=== PATIENT | male | born 2000 | race Two or more races ===

== ENCOUNTER 2023-11-12 14:58 | Emergency (ER) | payer MEDICAID, SELFPAY ==
--- NOTE | 2023-11-12 | ECG_ITS ---
Test Reason : cp Blood Pressure : / mmHG Vent. Rate : 100 BPM Atrial Rate : 100 BPM P-R Int : 134 ms QRS Dur : 088 ms QT Int : 336 ms P-R-T Axes : 063 044 035 degrees QTc Int : 433 ms Artifact in tracing Normal sinus rhythm Normal ECG No previous ECGs available Referred By: Generic ED Physician Electronically Signed By:BETTIE CHACON
--- NOTE | ~2023-11-12 | XR_ITS ---
EXAMINATION: XR CHEST CLINICAL INFORMATION: Chest pain COMPARISON: None available. TECHNIQUE: 2 views of the chest were obtained. FINDINGS: No evidence for airspace consolidation or pneumothorax. The hilar regions and pulmonary vascularity appear to be unremarkable. Pleural surfaces appear to be clear. No evidence for pneumomediastinum. XR/XR chest 2V IMPRESSION: No evidence for acute process.
[2023-11-12 15:35] VITALS: BP 154/86; PULSE 87; RESP 18; TEMP 36.3; O2SAT 99; BMI 29.8
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
[2023-11-12 16:04] LABS: Mean Corpuscular HGB Conc 35.9 g/dl (31.0-36.0); Mean Corpuscular Hemoglobin 32.5 pg (27.0-33.0); Mean Corpuscular Volume 90.5 fL (80.0-98.0); Mean Platelet Volume 10.1 fL (9.4-12.4); Platelet Count 193 X10*3/uL (160-400); Red Blood Count 4.31 X10*6/uL (4.60-5.80); White Blood Count 5.6 X10*3/uL (4.8-10.8)
[2023-11-12 16:26] LABS: SLIDE REVIEW MANUAL DIFF
[2023-11-12 16:28] LABS: Atypical Lymph Absolute Manual 0.1 x10*3/uL; Atypical Lymphs Percent Manual 2 % (0-6); Band Neutrophils Percent 1 % (3-5); Lymphocytes Absolute Manual 2.7 X10*3/uL (1.2-4.9); Lymphocytes Percent Manual 49 % (20-40); Monocytes Absolute Manual 0.5 X10*3/uL (0.1-1.2); Monocytes Percent Manual 9 % (2-11); Neutrophils Absolute Manual 2.2 X10*3/uL (2.0-8.3); Neutrophils Percent Manual 39 % (45-73); Platelet Estimate NORMAL (NORMAL); Platelet Morphology Comment NORMAL; RBC Morphology NORMAL
[2023-11-12 16:34] LABS: Alanine Aminotransferase 16 U/L (0-40); Albumin Level 4.9 g/dL (3.5-5.0); Alkaline Phosphatase 60 U/L (39-117); Anion Gap 14 (12-20); Aspartate Amino Transferase 20 U/L (5-37); Bilirubin Total 0.7 mg/dL (0.0-1.0); Blood Urea Nitrogen 20 mg/dL (9-16); Calcium 9.9 mg/dL (8.4-10.2); Carbon Dioxide 24 mmol/L (22-29); Chloride 107 mmol/L (96-108); Creatinine Clr Calc Pharmacy 119.4; Estimated Glomerular Filt Rate > 60; Glucose Random 101 mg/dL (60-115); Magnesium 2.2 mg/dL (1.6-2.6); Potassium 3.6 mmol/L (3.3-5.1); Sodium 141 mmol/L (135-145); Total Protein 8.1 g/dL (6.5-8.0)
[2023-11-12 16:44] LABS: Troponin-I High Sensitivity < 2.7 ng/L (<3.5-35.0)
[2023-11-12 16:58] LABS: Influenza A PCR NEGATIVE (Negative); Influenza B PCR NEGATIVE (Negative); Resp Syncy Virus RNA Qual PCR NEGATIVE (Negative); SARS COV2 PCR INHOUSE POSITIVE (Negative)
[2023-11-12 17:44] VITALS: BP 135/81; PULSE 60; RESP 17; O2SAT 96
[2023-11-12 19:59] LABS: Appearance Urine Clear; Color Urine Yellow; Glucose Urine UA Negative (Negative); Leukocyte Esterase Urine Negative (Negative); Nitrite Urine Negative (Negative); Specific Gravity - Urine >= 1.030 (1.005-1.025); Urine Blood Negative (Negative); Urine Ketones Trace mg/dL (Negative); Urine Protein Negative (Neg-Trace)
[2023-11-12 22:27] VITALS: BP 119/95; PULSE 64; RESP 18; TEMP 36.6; O2SAT 97
[2023-11-13 00:58] LABS: C Reactive Protein 0.25 mg/dL (< or = 0.50)
[2023-11-13 01:04] VITALS: BP 122/78; PULSE 59; RESP 16; TEMP 36.7; O2SAT 98
[2023-11-13] MEDS: LORazepam 1 MG TABLET 2 MG PO (01:27)
[2023-11-13 08:35] LABS: Syphilis Screen Nonreactive (Nonreactive)
[2023-11-13 13:39] LABS: CT PCR NOT DETECTED (Not Detect.); NG PCR NOT DETECTED (Not Detect.)
== END 2023-11-13 01:47 | disposition home or self-care (01) ==
PROVIDERS: Physician Assistant Medical; Emergency Provider Emergency Medicine
DX: U07.1 COVID-19 (principal); R07.89 Other chest pain; Z79.899 Other long term (current) drug therapy
CPT/HCPCS: 0241U; 36415; 71046; 80053; 81003; 83735; 84484; 85007; 85025; 85027; 86140; 86780; 87491; 87591; 93005; 99283; 99284

== ENCOUNTER → 2023-11-12 14:59 | Outpatient (BNV) | payer MEDICAID, SELFPAY | PROVIDERS: Emergency Provider Emergency Medicine; Visit Provider Internal Medicine | DX: R07.9 Chest pain, unspecified (principal) | CPT/HCPCS: 93010 ==

== ENCOUNTER 2024-03-14 10:03 | Outpatient (REF) | payer MEDICAID, SELFPAY ==
[2024-03-14 14:18] LABS: MANUAL DIFF FLAG NO
[2024-03-14 14:21] LABS: Basophils Percent Auto 0.5 % (0-2); Eosinophils Absolute Auto 0.2 X10*3/uL (0.0-0.4); Eosinophils Percent Auto 3.4 % (0-4); Hemoglobin 15.4 g/dl (14.0-18.0); Imm Gran Abs Auto 0.03 X10*3/uL (0.00-0.03); Imm Gran Pct Auto 0.5 % (0.0-0.4); Lymphocytes Absolute Auto 2.3 X10*3/uL (1.2-4.9); Mean Corpuscular Hemoglobin 31.4 pg (27.0-33.0); Mean Corpuscular Volume 89.6 fL (80.0-98.0); Mean Platelet Volume 10.6 fL (9.4-12.4); Monocytes Absolute Auto 0.5 X10*3/uL (0.1-1.2); Monocytes Percent Auto 7.4 % (2-11); Neutrophils Absolute Auto 3.4 x10*3/uL (2.0-8.3); Neutrophils Percent Auto 52.2 % (45-73); Platelet Count 188 X10*3/uL (160-400); Red Blood Count 4.91 X10*6/uL (4.60-5.80); Red Cell Distribution Width 11.9 % (11.0-16.0); White Blood Count 6.5 X10*3/uL (4.8-10.8)
[2024-03-14 14:33] LABS: Estimated Average Glucose 108 mg/dL; Hemoglobin A1C 139.7732 umol/L; Hemoglobin A1c % 5.4 % (<6.0)
[2024-03-14 14:44] LABS: Albumin Level 4.6 g/dL (3.5-5.0); Anion Gap 13 (12-20); Aspartate Amino Transferase 29 U/L (5-37); Bilirubin Total 0.4 mg/dL (0.0-1.0); Blood Urea Nitrogen 16 mg/dL (9-16); Calcium 9.9 mg/dL (8.4-10.2); Carbon Dioxide 24 mmol/L (22-29); Chloride 107 mmol/L (96-108); Cholesterol 217 mg/dL (<200); Estimated Glomerular Filt Rate > 60; Glucose Random 108 mg/dL (60-115); HDL Cholesterol 54 mg/dL (>40); LDL Cholesterol Calculated 137 mg/dL (<100); Sodium 140 mmol/L (135-145); Total Protein 7.6 g/dL (6.5-8.0); Triglycerides 131 mg/dL (<150)
[2024-03-14 15:01] LABS: Alanine Aminotransferase 33 U/L (0-40); Alkaline Phosphatase 52 U/L (39-117)
[2024-03-14 15:09] LABS: TSH reflex Free T4 1.41 uIU/mL (0.32-4.0)
[2024-03-15 08:38] LABS: HIV AB/AG Nonreactive (Nonreactive); HIV Num 1 0.06 S/CO (0.00-0.99); ~HepC Num1 0.16 S/CO (0.00-0.79); ~Hepatitis C Antibody Nonreactive (Nonreactive)
== END 2024-03-14 10:04 | disposition home or self-care (01) ==
LOC: HO.CHCLDS 10:03
PROVIDERS: Visit Provider Internal Medicine
DX: E66.811 Obesity, class 1 (principal)
CPT/HCPCS: 36415; 80053; 80061; 83036; 84443; 85025; 86803; 87389

== ENCOUNTER 2024-06-03 16:20 | Outpatient (REF) | payer MEDICAID, SELFPAY ==
[2024-06-03 18:47] LABS: Anion Gap 11 (12-20); Blood Urea Nitrogen 12 mg/dL (9-16); Calcium 9.4 mg/dL (8.4-10.2); Carbon Dioxide 28 mmol/L (22-29); Chloride 103 mmol/L (96-108); Estimated Glomerular Filt Rate > 60; Glucose Random 120 mg/dL (60-115); Potassium 3.9 mmol/L (3.3-5.1); Sodium 138 mmol/L (135-145)
--- OUTSIDE RECORDS SUMMARY | 2024-06-03 20:06 | XMS_ITS | Encounter Summary ---
Author Organization [employer] Address [address] [place] [address] Care Team Providers Care Round Corner Cutter Operator Name Role Phone Anirudh Nguyen MD Primary Care Prov ider Reason for Visit * Reason Onset Date Comments Nurse Triage 06/03/2024 Encounter Details Date Type Department Care Team (Late st Contact Info) Description 06/03/2024 Telephone [facility] [address] [place] [address] Anirudh Nguyen MD [address] [place] [address] Nurse Triage Social History Tobacco Use Types Packs/Day Years Used Date Smoking Tobacco: Never Smokeless Tobacco: Former Alcohol Use Standard Drinks/Week Comments Yes 0 (1 standard drink = 0.6 oz pur e alcohol) socially Depression Answer Date Recorded Patient Health Questionnaire-9 Score 0 01/30/2024 Patient Health Questionnaire-9 Score 0 01/30/2024 Last PHQ-9: Questionnaire Data Not on file 1 Housing Stability Answer Date Recorded What is your housing situation today? I have makenzie abbtot 01/30/[address] you li ve. Do you have problems with any of the following? None of the above 01/30/2024 Food Insecurity Answer Date Recorded Within the past 12 months, y ou worried that your food would run out before you got money to buy more: Never True 01/30/2024 Within the past 12 months,th e food you bought just didn't last and you didn't have enough money to get more: Never True Transportation Answer Date Recorded In the past 12 months, has l ack of transportation kept you from medical appts, meetings, work or from getting things needed for daily living? No 01/30/2024 Utilities Answer Date Recorded In the past 12 months, has t he electric, gas, oil or water [employer] threatened to shut off services in your home? No 01/30/2024 Depression Answer Date Recorded Patient Health Questionnaire-2 Score 0 01/30/2024 Internet Access Answer Date Recorded Internet Access Q1 Yes 01/30/2024 Internet Access Q2 Not on file 01/30/2024 Sex and Gender Information Value Date Recorded Sex Assigned at Male 11/13/2023 4:36 PM EDT Legal Sex Male 4:19 PM EDT Gender Identity Male 11/13/2023 4:36 PM EDT Sexual Orientation Straight 11/13/2023 4: 36 PM EDT documented as of this encounter Miscellaneous Notes * Telephone Encounter - Lisa Dumont RN - 06/03/2024 3:27 PM EST Pt. States that he has had a fever and sore throat x 2 days. Throat inflamed and white spots on throat. Pain with swallowing and body aches. Pt. Has taken Ibuprofen with no relief. Pt. Is on his way at present to [facility] walk in. Advised that they do take dinner break between 4-5pm. Pt. Is aware and states he is 10 minutes away. I advised that I cannot see who is there at present so hopefully he can get in prior to providers break. Protocol Used: Sore Throat (Adult) Protocol-Based Disposition: See in Office or Video Visit Today- Pt is currently on his way to [facility] walk in. Video visit offer not recorded Positive Triage Questions: * Severe sore throat pain * Pus on tonsils (back of throat) and swollen neck lymph nodes ( glands ) * Patient wants to be seen * Fever present > 3 days (72 hours) * All higher-acuity triage questions were negative Care Advice Discussed: * Sore Throat * Soft Diet * Drink Plenty of Liquids * Pain and Fever Medicines * Contagiousness * Expected Course * Telephone Encounter - Lopez Goran - 06/03/2024 3:14 PM EST Symptom: Sore Throat Outcome: Talk to a nurse or provider within 15 minutes Reason: Can't swallow saliva (drooling) The caller accepted this outcome. Advised of WIC hours documented in this encounter Plan of Treatment Not on file documented as of this encounter Visit Diagnoses Not on filedocumented in this encounter Additional Health Concerns Assessment Noted Time PHQ-9 Depression Total Score: 0 01/30/20 10:33 AM EDT documented as of this encounter Care Teams Round Corner Cutter Operator Relationship Specialty Start Date End Date Anirudh Nguyen MD [address] [place] [id number] PCP - General Internal Medicine 01/31/24 documented as of this encounter
--- OUTSIDE RECORDS SUMMARY | 2024-06-03 20:07 | XMS_ITS | Encounter Summary ---
Author Organization [employer] Address [address] [facility] [address] [place] [address] Care Team Providers Care Public Relations Associate Name Role Phone Anirudh Nguyen MD Primary Care Prov ider Reason for Visit * Reason Comments Sore Throat Encounter Details Date Type Department Care Team (Late st Contact Info) Description 06/03/2024 3:40 PM EST Office Visit [facility] [address] [place] [address] [phone] Sherley Reid MD [address] [place], [place] [phone] Strep pharyngitis (Primary Dx); COVID; Myalgia Social History Tobacco Use Types Packs/Day Years [...] your housing situation today? I have makenzie abbott 01/30/[address] you li [...] t he electric, gas, oil or water company threatened to shut off services in your [...] PM EDT documented as of this encounter Last Filed Vital Signs Vital Sign Reading Time Taken Comments Blood Pressure 142/91 06/03/2024 3:50 PM EST Pulse 132 06/03/2024 3:50 PM EST Temperature 38.8 ??C (101.9 ??F) 06/03/2024 3:[address] Respiratory Rate 20 06/03/2024 3:50 PM EST Oxygen Saturation 91% 06/03/2024 3:50 PM EST Inhaled Oxygen Concentration - - Weight 100 kg (220 lb 12.8 oz) 06/03/2024 3:50 P M EST Height - - Body Mass Index 33.82 03/14/2024 9:38 AM EST documented in this encounter Progress Notes * Sherley Reid MD - 06/03/2024 3:40 PM EST Subjective History was provided by the patient. Robby Devi is a 23 y.o. male with past medical history of obesity, anxiety and chronic back pain who presents for evaluation of symptoms of a URI. Symptoms include fever, myalgia, sore throat, and malaise . Reports worsening back and leg pain. Onset of symptoms was 2 days ago, unchanged since that time. Associated negative symptoms include cough, shortness of breath, nausea, and vomiting. Evaluation to date: none. Treatment to date: none. Objective Vitals: 06/03/24 1550 BP: (!) 142/91 BP Location: Left arm Patient Position: Sitting BP Cuff Size: Adult Pulse: (!) 132 Resp: 20 Temp: (!) 101.9 ??F (38.8 ??C) TempSrc: Oral SpO2: 91% Weight: 220 lb 12.8 oz (100 kg) Physical Exam Constitutional: Appearance: Normal appearance. Comments: febrile HENT: Right Ear: Tympanic membrane normal. Left Ear: Tympanic membrane normal. Nose: Nose normal. Mouth/Throat: Pharynx: Uvula midline. Pharyngeal swelling and posterior oropharyngeal erythema present. No oropharyngeal exudate. Eyes: Conjunctiva/sclera: Conjunctivae normal. Cardiovascular: Rate and Rhythm: Regular rhythm. Tachycardia present. Heart sounds: Normal heart sounds. Pulmonary: Effort: Pulmonary effort is normal. Breath sounds: Normal breath sounds. Musculoskeletal: Cervical back: Normal range of motion. No rigidity or tenderness. Lymphadenopathy: Cervical: Cervical adenopathy present. Neurological: Mental Status: He is alert. Psychiatric: Behavior: Behavior normal. Office Visit on 06/03/2024 Component Date Value Ref Range Status Rapid Influenza A Ag 06/03/2024 Negative Negative, Indeterminate Final QC Media Lot # 06/03/2024 [id number] Final Lot# Expiration Date 06/03/2024 100,826 Final Rapid Influenza B Ag 06/03/2024 Negative Negative, Indeterminate Final QC Media Lot # 06/03/2024 [id number] Final Lot# Expiration Date 06/03/2024 10,826 Final Rapid Strep A Screen 06/03/2024 Positive (A) Negative, None Detected Final QC Media Lot # 06/03/2024 [id number] Final Lot# Expiration Date 06/03/2024 10,826 Final Rapid COVID Ag 06/03/2024 Positive Final QC Media Lot # 06/03/2024 [id number] Final Lot# Expiration Date 06/03/2024 9,426 Final Problem List Items Addressed This Visit Strep pharyngitis - Primary -rapid strep positive -amoxicillin 500mg bid for 10 days -droplet precautions discussed -supportive care discussed Relevant Medications amoxicillin (Amoxil) 500 MG capsule acetaminophen (Tylenol 8 Hour) 650 MG ER tablet Other Relevant Orders Creatine Kinase, Total POCT Influenza A manually resulted (Completed) POCT Influenza B manually resulted (Completed) POCT rapid strep A manually resulted (Completed) COVID -COVID-19 positive, symptoms mild to moderate. No evidence of respiratory distress -supportive care with fluids, rest and OTC analgesics -isolation discussed -work/school note given Relevant Orders Creatine Kinase, Total POCT Rapid COVID Ag (Completed) Myalgia Reports worsening back and leg pain associated with underlying infections. -ordered CPK to r/o rhabdomyolysis. Relevant Orders Basic Metabolic Panel Creatine Kinase, Total -No evidence of acute disease process. Swabs were positive for COVID and Strep. Symptoms mild. -Will treat with abx and antipyretic. -ER precautions discussed. -Seek medical attention for worsening symptoms. I, Razia Young, am serving as a scribe to document services personally performed by Dr. Oliver, based on the patient's response to questions by provider and providers statements to me. documented in this encounter Miscellaneous Notes * Assessment & Plan Note - Razia Young - 06/03/2024 5:18 PM ESTAssociated Problem(s): Myalgia Reports worsening back and leg pain associated with underlying infections. -ordered CPK to r/o rhabdomyolysis. * Assessment & Plan Note - Razia Young - 06/03/2024 5:00 PM ESTAssociated Problem(s): COVID -COVID-19 positive, symptoms mild to moderate. No evidence of respiratory distress -supportive care with fluids, rest and OTC analgesics -isolation discussed -work/school note given * Assessment & Plan Note - Razia Young - 06/03/2024 5:00 PM ESTAssociated Problem(s): Strep pharyngitis -rapid strep positive -amoxicillin 500mg bid for 10 days -droplet precautions discussed -supportive care discussed documented in this encounter Plan of Treatment Not on file documented as of this encounter Procedures Procedure Name Priority Date/Time Associated Diagnosis Comments CREATINE KINASE, TOTAL STAT 06/03/2024 4:24 PM EST Strep pharyngitis Myalgia COVID BASIC METABOLIC PANEL Routine 06/03/2024 4:24 PM EST Myalgia POCT INFLUENZA A Routine 06/03/2024 4:14 PM EST Strep pharyngitis POCT INFLUENZA B Routine 06/03/2024 4:13 PM EST Strep pharyngitis POCT RAPID STREP A Routine 06/03/2024 4: 13 PM EST Strep pharyngitis POCT RAPID COVID ANTIGEN Routine 06/03/2024 4:11 PM EST COVID documented in this encounter Results * Creatine Kinase, Total (06/03/2024 4:24 PM EST) Creatine Kinase Total 127 38 - 174 U/L [facility] Blood Venous blood specimen / Unknown 06/03/2024 4:24 PM EST 06/03/2024 6:15 PM EST Sherley Reid MD LAB BLOOD ORDERABLES Final Result [facility] [address] [place] [phone] * (ABNORMAL) Basic Metabolic Panel (06/03/2024 4:24 PM EST) Sodium 138 135 - 145 mmol/L [facility] Potassium 3.9 3.3 - 5.1 mmol/L [facility] Chloride 103 96 - 108 mmol/L [facility] Carbon Dioxide 28 22 - 29 mmol/L [facility] Anion Gap 11(L) 12 - 20 [facility] Urea Nitrogen (BUN) 12 9 - 16 mg/dL [facility] Creatinine, Serum 0.93 0.5 - 1.4 mg/dL [facility] Estimated Glomerular Filt Rate >60 [facility] Comment:Chronic Kidney Disea se: Estimated GFR < 60 mL/min/1.01p3Dwsycn Kidney Disease: Estimated GFR < 15 mL/min/1.73m2 Glucose 120(H) 60 - 115 mg/dL [facility] Calcium 9.4 8.4 - 10.2 mg/dL [facility] Blood Venous blood specimen / Unknown 06/03/2024 4:24 PM EST 06/03/2024 6:15 PM EST Sherley Reid MD LAB BLOOD ORDERABLES Final Result [facility] [address] [place] [phone] * POCT Influenza A manually resulted (06/03/2024 4:14 PM EST) [facility] Rapid Influenza A Ag Negative Negative, Indeterminate QC Media Lot # [id number] Lot# Expiration Date Swab Nasopharyngeal structure / Unknown 06/03/2024 4:14 PM EST Sherley Reid MD POINT OF CARE TEST ENTER/E DIT ORDERABLES Final Result * (ABNORMAL) POCT rapid strep A manually resulted (06/03/2024 4:13 PM EST) [facility] Rapid Strep A Screen Positive( A) Negative, None Detected QC Media Lot # [id number] Lot# Expiration Date Swab 06/03/2024 4:13 PM EST Sherley Reid MD POINT OF CARE TEST ENTER/E DIT ORDERABLES Final Result * POCT Influenza B manually resulted (06/03/2024 4:13 PM EST) [facility] Rapid Influenza B Ag Negative Negative, Indeterminate QC Media Lot # [id number] Lot# Expiration Date Swab 06/03/2024 4:13 PM EST us Sherley Reid MD POINT OF CARE TEST ENTER/E DIT ORDERABLES Final Result * POCT Rapid COVID Ag (06/03/2024 4:11 PM EST) Rapid COVID Ag Positive QC Media Lot # [id number] Lot# Expiration Date Swab 06/03/2024 4:11 PM EST Sherley Redi MD POINT OF CARE TEST ENTER/E DIT ORDERABLES Final Result documented in this encounter Visit Diagnoses Diagnosis Strep pharyngitis- Primary COVID Myalgia Unspecified myalgia and myositis documented in this encounter Additional Health Concerns Assessment Noted Time PHQ-9 Depression Total Score: 0 01/30/20 24 10:33 AM EDT documented as of this encounter Care Teams Public Relations Associate Relationship Specialty Start Date End Date Anirudh Nguyen MD [address] [place] [phone] PCP - General Internal Medicine 01/31/24 documented as of this encounter
--- OUTSIDE RECORDS SUMMARY | 2024-06-03 20:07 | XMS_ITS | Encounter Summary ---
Author Organization [employer] Address [address] [place] [address] Care Team Providers Care Records Supervisor Name Role Phone Anirudh Nguyen MD Primary Care Prov ider Encounter Details Date Type Department Care Team (Late st Contact Info) Description 06/03/2024 Telephone [facility] [address] [place] [address] [phone] Sherley Reid MD [address] [place], [place] [phone] Social History Tobacco Use Types Packs/Day Years [...] is your housing situation today? I have makenzienicki abbott 01/30/[address] you [...] encounter Miscellaneous Notes * Telephone Encounter - Opal Malloy RN - 06/03/2024 7:42 PM EST ----- Message from Sherley Reid MD sent at 06/03/2024 7:10 PM EST ----- Please let pt know labs look good. No muscle breakdown. Keep up the hydration. Thank you. TC placed to pt and the above message was discussed documented in this encounter Plan of Treatment Not on file documented as of this encounter Visit Diagnoses Not on filedocumented in this encounter Additional Health Concerns Assessment Noted Time PHQ-9 Depression Total Score: 0 01/30/20 24 10:33 AM EDT documented as of this encounter Care Teams Records Supervisor Relationship Specialty Start Date End Date Anirudh Nguyen MD [address] [place] [phone] PCP - General Internal Medicine 01/31/24 documented as of this encounter
--- OUTSIDE RECORDS SUMMARY | 2024-06-03 20:07 | XMS_ITS | Clinical Summary ---
Author Organization [employer] Address [address] [facility] [address] [place] [address] Care Team Providers Care Jewel Lathe Operator Name Role Phone Anirudh Nguyen MD Primary Care Prov ider Allergies No known active allergies Medications hydrOXYzine HCl (Atarax) 25 MG tablet Take 1 tablet (25 mg) by mouth 4 times daily for 14 days. 45 tablet 11/13/2023 Active traZODone (Desyrel) 50 MG tablet TAKE 1 TABLET(50 MG) BY MOUTH AT BEDTIME 30 tablet 12/21/2023 Active amoxicillin (Amoxil) 500 MG capsuleIndicatio ns:Strep pharyngitis Take 1 tab po bid for 10 days 30 capsule 06/03/2024 Active acetaminophen (Tylenol 8 Hour) 650 MG ER tabletIndication s:Strep pharyngitis Take 1 tablet (650 mg) by mouth every 8 (eight) hours if needed for mild pain for up to 10 days. Do not crush, chew, or split. 30 tablet 06/03/2024 06/14/19 25 Active Active Problems Problem Noted Date Diagnosed Date Strep pharyngitis 06/03/2024 Assessment & Plan (06/03/2024 5:00 PM EST): -rapid strep positive -amoxicillin 500mg bid for 10 days -droplet precautions discussed -supportive care discussed COVID 06/03/2024 Assessment & Plan (06/03/2024 5:00 PM EST): -COVID-19 positive, symptoms mild to moderate. No evidence of respiratory distress -supportive care with fluids, rest and OTC analgesics -isolation discussed -work/school note given Myalgia 06/03/2024 Assessment & Plan (06/03/2024 5:18 PM EST): Reports worsening back and leg pain associated with underlying infections. -ordered CPK to r/o rhabdomyolysis. Chronic midline thoracic back pain 03/14/2024 Assessment & Plan (03/14/2024 2:14 PM EST): Chronic back pain, he has been seen previously at [facility], and had PT without improvement in symptoms, will order a thoracic MRI and will refer to ortho for evaluation Physical exam 03/14/2024 Assessment & Plan (03/14/2024 2:15 PM EST): Unremarkable physical examination, chronic thoracic back pain, will order labs to evaluate for secondary diseases related to obesity Obesity (BMI 30.0-34.9) 03/14/2024 Assessment & Plan (03/14/2024 2:16 PM EST): Encouraged healthy diet, exercise, risk were discussed, Encounter for medical examination to establish c are 01/30/2024 Assessment & Plan (01/30/2024 12:19 PM EDT): Last pcp follow up >4 yrs Hospitalization: abdominal pain had egd/colonoscopy ct scan with illeitis Er visit in the past year: due to anxiety/panic attack Pmhx: anxiety Psh: - All:- Meds:- Living with girlfriend has 1 daughter Works as a proofer Chronic bilateral low back pain without sciatica 01/30/2024 Assessment & Plan (01/30/2024 12:21 PM EDT): Chronic low back pain, no trauma, told to avoid heavy lifting, apply cold pads, rest take tylenol/ibuprofen as needed Ileitis 01/30/2024 Assessment & Plan (01/30/2024 12:22 PM EDT): Patient underwent EGD/colonoscopy and biopsy was performed, will refer to gi, no further symptoms reported Anxiety 01/30/2024 Assessment & Plan (01/30/2024 12:23 PM EDT): Symptoms controlled, denied suicidal/homicidal ideas Encounters Date Type Department Care Team Description 06/03/2024 3:40 PM EST Office Visit [facility] [address] [place] [phone] Sherley Reid MD Strep pharyngitis (Primary Dx); COVID; Myalgia 06/03/[address] [facility] [address] [place] [phone] Sherley Reid MD 06/03/[address] [facility] [address] [place] [phone] Sherley Reid MD 06/03/[address] [facility] [address] [place] [address] [phone] Anirudh Nguyen MD Nurse Triage 03/14/2024 9:30 AM EST Office Visit [facility] [address] [place], [place] [phone] Anirudh Nguyen MD Obesity (BMI 30.0-34.9) (Primary Dx); Chronic midline thoracic back pain; Physical exam 03/14/2024 Travel 03/05/2024 Patient Outreach [facility] [address] [place] [address] Anirudh Nguyen MD Pre-visit Planning (SDOH was completed on 01/30/2024) from Last 3 Months Family History Medical History Relation Name Comments Diabetes Father Heart attack Father Hyperlipidemia Father Hypertension Father Breast cancer Maternal Grandmother No Known Problems Mother Relation Name Status Comments Father Maternal Grandmother Mother Social History Tobacco Use Types Packs/Day Years Used Date Smoking Tobacco: Never Smokeless Tobacco: Former Tobacco Cessation:Counseling Given: Yes Alcohol Use Standard Drinks/Week Comments Yes 0 [...] Orientation Straight 11/13/2023 4: 36 PM EDT Last Filed Vital Signs Vital Sign Reading [...] oz) 06/03/2024 3:50 P M EST Height 172.1 cm (5' 7.75 ) 03/14/2024 9:38 AM ES T Body Mass Index 33.82 03/14/2024 9:38 AM EST Plan of Treatment Health Maintenance Due Date Last Done Comments Chlamydia and Gonorrhea Screening 2001 Alcohol/Substance Use Screening 2013 Family Planning (PISQ) 2016 HPV Vaccines (1 - Male 3-dos e series) 2016 DTaP/Tdap/Td Vaccines (1 - Tdap) 2020 Hepatitis B Vaccines (1 of 3 - 19+ 3-dose series) 2020 COVID-19 Vaccine ( - 2023-2 5 season) 2023 Influenza Vaccine (#1) 2023 Depression Screening 01/29/2025 01/30/2024, 01/30/2024 SDOH Screening 01/29/2025 01/30/2024 Tobacco Screening 01/29/2025 01/30/2024 Zoster Vaccines (1 of 2) 07/02/2051 RSV Patients and Patients Aged 60 years or older (1 - 1-dose 75+ series) 2076 HIV Screening Completed 03/14/2024 Hepatitis C Screening Completed 03/14/2024 HIB Vaccines Aged Out No longer eligi ble based on patient's age to complete this topic Hepatitis A Vaccines Aged Out No long er eligible based on patient's age to complete this topic IPV Vaccines Aged Out No longer eligi ble based on patient's age to complete this topic Meningococcal Vaccine Aged Out No noemy shahid eligible based on patient's age to complete this topic Pneumococcal Vaccine: Pediatrics (0 to 5 Years) and At-Risk Patients (6 to 49) Years) Aged Out No longer eligible b ased on patient's age to complete this topic RSV under 20 months Aged Out No longe r eligible based on patient's age to complete this topic Rotavirus Vaccines Aged Out No longer eligible based on patient's age to complete this topic Procedures Procedure Name Priority Date/Time Associated Diagnosis Comments CREATINE KINASE, TOTAL STAT 4:24 PM EST Strep pharyngitis Myalgia COVID BASIC METABOLIC PANEL Routine 06/03/2024 4:24 PM EST Myalgia POCT INFLUENZA A Routine 06/03/2024 4:14 PM EST Strep pharyngitis POCT RAPID STREP A Routine 06/03/2024 4: 13 PM EST Strep pharyngitis POCT INFLUENZA B Routine 06/03/2024 4:13 PM EST Strep pharyngitis POCT RAPID COVID ANTIGEN Routine 06/03/2024 4:11 PM EST COVID HEPATITIS C AB W/REFL TO HCV RNA, QN, PCR Routine 03/14/2024 10:05 AM EST Obesity (BMI 30.0-34.9) HIV 1/2 ANTIGEN/ANTIBODY, FOURTH GENERATION W/RFL Routine 03/14/2024 10:05 AM EST Obesity (BMI 30.0-34.9) HEMOGLOBIN A1C Routine 03/14/2024 10:05 AM EST Obesity (BMI 30.0-34.9) TSH W/REFLEX TO FT4 Routine 03/14/2024 1 0:05 AM EST Obesity (BMI 30.0-34.9) LIPID PANEL, STANDARD Routine 03/14/2024 10:05 AM EST Obesity (BMI 30.0-34.9) COMPREHENSIVE METABOLIC PANEL Routine 03/14/2024 10:05 AM EST Obesity (BMI 30.0-34.9) CBC WITH AUTO DIFFERENTIAL Routine 03/14/2024 10:05 AM EST Obesity (BMI 30.0-34.9) from Last 3 Months Results * Creatine Kinase, Total (06/03/2024 4:24 PM EST) Creatine Kinase Total 127 38 - 174 U/L [facility] Blood Venous blood specimen / Unknown 06/03/2024 4:24 PM EST 06/03/2024 6:15 PM EST us Sherley Reid MD LAB BLOOD ORDERABLES Final Result [facility] [address] [place] [address] [phone] * (ABNORMAL) Basic Metabolic Panel (06/03/2024 4:24 PM EST) [facility] Sodium 138 135 - 145 mmol/L [facility] Potassium 3.9 3.3 - 5.1 mmol/L [facility] Chloride 103 96 - 108 mmol/L [facility] Carbon Dioxide 28 22 - 29 mmol/L [facility] Anion Gap 11(L) 12 - 20 [facility] Urea Nitrogen (BUN) 12 9 - 16 mg/dL [facility] Creatinine, Serum 0.93 0.5 - 1.4 mg/dL [facility] Estimated Glomerular Filt Rate >60 [facility] Comment:Chronic Kidney Disea se: Estimated GFR < 60 mL/min/[id number] Kidney Disease: Estimated GFR < 15 mL/min/1.73m2 Glucose 120(H) 60 - 115 mg/dL [facility] Calcium 9.4 8.4 - 10.2 mg/dL [facility] Blood Venous blood specimen / Unknown 06/03/2024 4:24 PM EST 06/03/2024 6:15 PM EST Sherley Reid MD LAB BLOOD ORDERABLES Final Result Performing Organization Address City/State/[facility] Co de Phone Number [facility] [address] [place] [phone] * POCT Influenza A manually resulted (06/03/2024 4:14 PM EST) [facility] Rapid Influenza A Ag Negative Negative, Indeterminate QC Media Lot # [id number] Lot# Expiration Date Swab Nasopharyngeal structure / Unknown 06/03/2024 4:14 PM EST Shelrey Reid MD POINT OF CARE TEST ENTER/E DIT ORDERABLES Final Result * POCT Influenza B manually resulted (06/03/2024 4:13 PM EST) [facility] Rapid Influenza B Ag Negative Negative, Indeterminate QC Media Lot # [id number] Lot# Expiration Date Swab 06/03/2024 4:13 PM EST Sherley Reid MD POINT OF CARE TEST ENTER/E DIT ORDERABLES Final Result * (ABNORMAL) POCT rapid strep A manually resulted (06/03/2024 4:13 PM EST) Pathologist [facility] Rapid Strep A Screen Positive( A) Negative, None Detected QC Media Lot # [id number] Lot# Expiration Date Swab 06/03/2024 4:13 PM EST Sherley Reid MD POINT OF CARE TEST ENTER/E DIT ORDERABLES Final Result * POCT Rapid COVID Ag (06/03/2024 4:11 PM EST) [facility] Rapid COVID Ag Positive QC Media Lot # [id number] Lot# Expiration Date Swab 06/03/2024 4:11 PM EST Sherley Reid MD POINT OF CARE TEST ENTER/E DIT ORDERABLES Final Result * TSH W/Reflex to FT4 (03/14/2024 10:05 AM EST) [facility] TSH reflex Free T4 1.41 0.32 - 4.0 uIU/mL [facility] Blood Venous blood specimen / Unknown 03/14/2024 10:05 AM EST 03/14/2024 2:18 PM EST Anirudh Kurtz MD LAB BLOOD ORDERABL ES Final Result [facility] [address] [place] [address] [phone] * (ABNORMAL) CBC auto differential (03/14/2024 10:05 AM EST) [facility] White Blood Count 6.5 4.8 - 10.8 X10*3/uL [facility] Red Blood Count 4.91 4.60 - 5.80 X10*6/uL [facility] Hemoglobin 15.4 14.0 - 18.0 g/dl [facility] Hematocrit 44.0 42.0 - 52.0 % [facility] Mean Corpuscular Volume 89.6 80.0 - 98.0 fL [facility] Mean Corpuscular Hemoglobin 31.4 27.0 - 33.0 pg [facility] Mean Corpuscular HGB Conc 35.0 31.0 - 36.0 g/dl [facility] Red Cell Distribution Width 11.9 11.0 - 16.0 % [facility] Platelet Count 188 160 - 400 X10*3/uL [facility] Mean Platelet Volume 10.6 9.4 - 12.4 fL [facility] Neutrophils Percent Auto 52.2 45 - 73 % [facility] Imm Gran Pct Auto 0.5(H) 0.0 - 0.4 % [facility] Lymphocytes Percent Auto 36.0 20 - 40 % [facility] Monocytes Percent Auto 7.4 2 - 11 % [facility] Eosinophils Percent Auto 3.4 0 - 4 % [facility] Basophils Percent Auto 0.5 0 - 2 % [facility] NRBC Pct Auto 0.0 0.0 - 0.2 /100WBC [facility] Neutrophils Absolute Auto 3.4 2.0 - 8.3 x10*3/uL [facility] Imm Gran Abs Auto 0.03 0.00 - 0.03 X10*3/uL [facility] Lymphocytes Absolute Auto 2.3 1.2 - 4.9 X10*3/uL [facility] Monocytes Absolute Auto 0.5 0.1 - 1.2 X10*3/uL [facility] Eosinophils Absolute Auto 0.2 0.0 - 0.4 X10*3/uL [facility] Basophils Absolute Auto 0.0 0.0 - 0.2 X10*3/uL [facility] NRBC Abs Auto 0.000 0.0 - 0.012 X10*3/uL [facility] Blood Venous blood specimen / Unknown 03/14/2024 10:05 AM EST 03/14/2024 2:14 PM EST Anirudh Kurtz MD LAB BLOOD ORDERABL ES Final Result Performing Organization Address [facility]/ZIP Co de Phone Number [facility] [address] [place] [phone] * Hepatitis C Antibody with Reflex to HCV, RNA, Quantitative, Real-Time PCR (03/14/2024 10:05 AM EST) Hepatitis C Antibody Nonreactive Nonreactive [facility] Comment:Antibodies to HCV no t detected; does not exclude early acuteHCV infection. Blood Venous blood specimen / Unknown 03/14/2024 10:05 AM EST 03/14/2024 2:18 PM EST Anirudh Kurtz MD LAB BLOOD ORDERABL ES Final Result Performing Organization Address [facility] Co de Phone Number [facility] [address] [place] [address] [phone] * HIV-1/2 Antigen and Antibodies, Fourth Generation, with Reflexes (03/14/2024 10:05 AM EST) HIV AB/AG Nonreactive Nonreactive [facility] Comment:HIV-1 p24 Ag and/or HIV-1/HIV-2 Ab not detected.A test result that is nonreactive does not exclude thepossibility of exposure to or infection with HIV-1 and/orHIV-2. Nonreactive results in this assay for individualswith prior exposure to HIV-1 and/or HIV-2 may be due toantigen and antibody levels that are below the limit ofdetection of this assay.The [employer] HIV Ag/Ab Combo assay result andsupplemental assay results should be interpreted inconjunction with the patient's clinical presentation,history and other laboratory results. If the results areinconsistent with clinical evidence, additional testing issuggested to confirm the result. Blood Venous blood specimen / Unknown 03/14/2024 10:05 AM EST 03/14/2024 2:18 PM EST Anirudh Kurtz MD LAB BLOOD ORDERABL ES Final Result Performing Organization Address [facility] Co de Phone Number [facility] [address] [place] [address] [phone] * Hemoglobin A1c (03/14/2024 10:05 AM EST) Hemoglobin A1c 5.4 <6.0 % [facility] Comment:Hemoglobin A1C Refer ence Range Adults: 4.8 - 6.0 % Non diabetic: < 6.0 % Goal: < 7.0 %Additional Action Suggested: > 8.0 %Note: Hemoglobin A1c results are invalid for patients with abnormal amounts of HbF. Blood transfusions may impact the HbA1c concentration in the patient sample. Estimated Average Glucose 108 mg/dL [facility] Comment:eAG = Estimated ave rage glucose which is %A1C expressed asaverage glucose, using the formula of the T5H-ZdumegmRbzouet Glucose study (ADAG), Diabetes Care, Vol.31,#8,Oct. 2007 Blood Venous blood specimen / Unknown 03/14/2024 10:05 AM EST 03/14/2024 2:14 PM EST Anirudh Kurtz MD LAB BLOOD ORDERABL ES Final Result Performing Organization Address [facility] Co de Phone Number [facility] [address] [place] [address] [phone] * (ABNORMAL) Lipid Panel, Standard (03/14/2024 10:05 AM EST) Triglycerides 131 <150 mg/dL [facility] Comment:Desirable Triglyceri de: less than 150 mg/dLBorderline High Triglyceride 150-199 mg/dLHigh Triglyceride: 200-499 mg/dLVery High Triglyceride: greater than or equal to 5OO mg/dL Cholesterol 217(H) <200 mg/dL [facility] Comment:Desirable Cholestero l: less than 200 mg/dLBorderline High Cholesterol: 200-239 mg/dLHigh Cholesterol: greater than 239 mg/dL LDL Cholesterol Calculated 137(H) <100 mg/dL [facility] Comment:Desirable LDL: less than 100 mg/dLNear Optimal/Above Optimal LDL: 110- 129 mg/dLBorderline High LDL: 130-159 mg/dLHigh LDL: 160-189 mg/dLVery High LDL: greater than or equal to 190 mg/dL HDL Cholesterol 54 >40 mg/dL [facility] Comment:Desirable HDL: great er than 40 mg/dL Note: This HDL assay may give artificially low results in patients with liver disease. Blood Venous blood specimen / Unknown 03/14/2024 10:05 AM EST 03/14/2024 2:18 PM EST Anirudh Kurtz MD LAB BLOOD ORDERABL ES Final Result [facility] [address] [place] [phone] * Comprehensive Metabolic Panel (03/14/2024 10:05 AM EST) Sodium 140 135 - 145 mmol/L [facility] Potassium 4.0 3.3 - 5.1 mmol/L [facility] Chloride 107 96 - 108 mmol/L [facility] Carbon Dioxide 24 22 - 29 mmol/L [facility] Anion Gap 13 12 - 20 [facility] Urea Nitrogen (BUN) 16 9 - 16 mg/dL [facility] Creatinine, Serum 0.98 0.5 - 1.4 mg/dL [facility] Estimated Glomerular Filt Rate >60 [facility] Comment:Chronic Kidney Disea se: Estimated GFR < 60 mL/min/[id number] Kidney Disease: Estimated GFR < 15 mL/min/1.73m2 Glucose 108 60 - 115 mg/dL [facility] Calcium 9.9 8.4 - 10.2 mg/dL [facility] Bilirubin, Total 0.4 0.0 - 1.0 mg/dL [facility] Aspartate Amino Transferase 29 5 - 37 U/L [facility] Alanine Aminotransferase 33 0 - 40 U/L [facility] Total Protein 7.6 6.5 - 8.0 g/dL [facility] Albumin Level 4.6 3.5 - 5.0 g/dL [facility] Alkaline Phosphatase 52 39 - 117 U/L [facility] Blood Venous blood specimen / Unknown 03/14/2024 10:05 AM EST 03/14/2024 2:18 PM EST us Anirudh Kurtz MD LAB BLOOD ORDERABL ES Final Result [facility] [address] [place] [phone] from Last [address] [place] [address] [place] [address] C3 Care Teams Jewel Lathe Operator Relationship Specialty Start Date End Date Anirudh Nguyen MD [address] [place] [phone] PCP - General Internal Medicine 01/31/24
--- OUTSIDE RECORDS SUMMARY | 2024-06-03 20:07 | XMS_ITS | Encounter Summary ---
Author Organization [employer] Address [address] [facility] [address] [facility] [place] [address] Care Team Providers Care Stacker Operator Name Role Phone Anirudh Nguyen MD Primary Care Prov ider Encounter Details Date Type Department Care Team (Late st Contact Info) Description 06/03/2024 Telephone [facility] [address] [place] [address] [phone] Sherley Reid MD [address] [place], [place] [phone] Social History Tobacco Use Types Packs/Day Years [...] encounter Miscellaneous Notes * Telephone Encounter - Sherley Reid MD - 06/03/2024 5:31 PM EST [facility]by seen in [facility] 06/03/24 and dx with strep and COVID. CPK ordered to evaluate for rhabdo given muscle pain. Please call on 06/04/24 for status check. CKP pending. Thank you. documented in this encounter Plan of Treatment Not on file documented as of this encounter Visit Diagnoses Not on filedocumented in this encounter Additional Health Concerns Assessment Noted Time PHQ-9 Depression Total Score: 0 01/30/20 24 10:33 AM EDT documented as of this encounter Care Teams Stacker Operator Relationship Specialty Start Date End Date Anirudh Nguyen MD [address] [place] [address] [phone] PCP - General Internal Medicine 01/31/24 documented as of this encounter
== END 2024-06-03 16:21 | disposition home or self-care (01) ==
LOC: HO.HHCL 16:20
PROVIDERS: Visit Provider Family Medicine
DX: M79.10 Myalgia, unspecified site (principal); J02.0 Streptococcal pharyngitis; U07.1 COVID-19
CPT/HCPCS: 36415; 80048; 82550

== ENCOUNTER 2024-07-30 17:07 | Outpatient (REF) | payer MEDICAID, SELFPAY | END 2024-07-30 17:08 | disposition home or self-care (01) | LOC: HO.LNP 17:07 | PROVIDERS: Visit Provider Nurse Practitioner | DX: R35.0 Frequency of micturition (principal) | CPT/HCPCS: 87086 ==